=== PATIENT | female | born 1995 | race African-American/Black ===

== ENCOUNTER 2017-04-03 11:33 | Inpatient (IN) ==
[2017-04-03 12:47] LABS: Creatinine 24 Hr Urine Result 0.76 G/24HR (0.60-1.80)
[2017-04-03] MEDS ORDERED: ceFAZolin 2,000 MG in PREMIX 1 EACH IV ONE (13:18)
[2017-04-03] MEDS ORDERED: BUPIVACAINE SPINAL 0.75% 2 ML AMP SPINAL ONE (13:29)
[2017-04-03] MEDS ORDERED: MAGNESIUM SULF RIDER 100 ML IV ONE (13:30)
[2017-04-03 13:32] LABS: Basophils % 0.2 % (0.0-0.8); Eosinophils # 0.1 10*3/uL (0.0-0.87); Eosinophils % 0.8 % (0.00-10.9); Hematocrit 34.4 VOL% (35.7-47.0); Hemoglobin 10.8 GM/DL (12.0-16.0); Immature Granulocytes % 0.8 %; Immature Granulocytes Absolute 0.11 #; Lymphocytes % 22.4 % (21.3-54.2); Mean Corpuscular HGB Conc 31.4 GM/DL (32-36); Mean Corpuscular Hemoglobin 25 PG (27-34); Mean Corpuscular Volume 78.9 FL (87-102); Mean Platelet Volume 9.9 FL (9.6-12.0); Monocytes # 1.7 10*3/uL (0.11-0.8); Monocytes % 12.8 % (1.7-12.7); Neutrophils # 8.3 10*3/uL (1.4-7.4); Platelet Count 504 T/CUMM (130-400); Red Blood Count 4.36 MC/CUMM (3.8-5.5); Red Cell Distribution Width 19.7 % (9.3-17.3); White Blood Count 13.2 T/CUMM (4-12)
[2017-04-03] MEDS: LACTATED RINGERS 1,000 ML IV SCH ×2 (13:38→21:30)
[2017-04-03 13:41] LABS: INR 0.8; Partial Thromboplastin Time 26.6 SECS (0-40)
[2017-04-03] MEDS ORDERED: hydrALAZINE 20 MG/1 ML VIAL IV ONE (13:44)
[2017-04-03 13:58] LABS: Apearance,Urine Slightly Hazy (Clear); Bacteria,Urine Occasional /HPF (Few); Bilirubin,Urine Negative (Negative); Blood, Urine Negative (Negative); Glucose,Urine (UA) Negative (Negative); Ketones,Urine Negative (Negative); Mucus,Urine Few /LPF (Occasional); Nitrite,Urine Negative (Negative); Protein,Urine >=500 MG/DL; RBC,Urine <1 /HPF (0-4); Squamous Epithelial Cell,Urine Occasional /HPF (0-10); Urine Color Yellow (Yellow); Urine Specific Gravity 1.045 (1.001-1.035); Urine Urobilinogen < 2.0 EU/DL (0.2-1.0); WBC,Urine 3 /HPF (0-6)
[2017-04-03 13:58] LABS: Alanine Aminotransferase 10 U/L (13-56); Albumin 1.5 G/DL (3.4-5.0); Alkaline Phosphatase 172 U/L (45-117); Aspartate Amino Transferase 18 U/L (0-37); Bilirubin,Total < 0.39 MG/DL (0.2-1.0); Blood Urea Nitrogen 10 MG/DL (7-18); Calcium 7.7 MG/DL (8.5-10.1); Glucose 87 MG/DL (74-106); Osmolality,Calculated 280.1 MOS/KG (273-304); Potassium 3.9 MMOL/L (3.5-5.1); Sodium 142 MMOL/L (136-145); Total Protein 4.9 G/DL (6.4-8.3)
[2017-04-03] MEDS ORDERED: OXYTOCIN 10 UNIT/ML VIAL IM ONE (14:15)
[2017-04-03] MEDS ORDERED: OXYTOCIN/LR 30 UNIT/1,000 ML BAG IV ONE (14:15)
[2017-04-03] MEDS ORDERED: FAMOTIDINE 20 MG/2 ML VIAL IV ONE (14:25)
[2017-04-03] MEDS ORDERED: CITRIC ACID/SODIUM CITRATE 30 ML UDCUP PO ONE (14:25)
[2017-04-03] MEDS ORDERED: MIDAZOLAM 2 MG/2 ML VIAL ONE ×2 (14:26→14:46)
[2017-04-03 14:30] LABS: Cord Arterial Blood HCO3 26.6 MMOL/L
[2017-04-03 14:32] LABS: Cord Venous Blood HCO3 22.7 MMOL/L; Cord Venous Blood PCO2 45.5 MMHG; Cord Venous Blood PO2 15.4
[2017-04-03] MEDS ORDERED: MORPHINE 10 MG/10 ML VIAL ONE (14:47)
[2017-04-03] MEDS: MAGNESIUM SULF DRIP 40 GM/1,000 ML ML IV SCH (14:51)
[2017-04-03] MEDS: diphenhydrAMINE 50 MG/1 ML VIAL IV PRN ×2 (16:42→23:49)
[2017-04-03] MEDS: hydrALAZINE 20 MG/1 ML VIAL IV SCH ×2 (18:14→18:15)
[2017-04-03] MEDS: LABETALOL 200 MG TABLET PO SCH (20:33)
[2017-04-03] MEDS ORDERED: OXYTOCIN/LR 20 UNIT/1,000 ML BAG IV ONE (21:30)
[2017-04-03] MEDS ORDERED: ONDANSETRON 4 MG/2 ML VIAL IV PRN (21:30)
[2017-04-03] MEDS ORDERED: SIMETHICONE CHEW 80 MG TABLET PO PRN (21:30)
[2017-04-03] MEDS ORDERED: ACETAMINOPHEN 325 MG TABLET PO PRN (21:30)
[2017-04-03] MEDS ORDERED: RHO(D) IMMUNE GLOBULIN 300 MCG SYRINGE IM ONE (22:00)
[2017-04-04] MEDS: DOCUSATE SODIUM 100 MG CAPSULE PO SCH ×3 (00:52→20:49)
[2017-04-04] MEDS: LABETALOL 200 MG TABLET PO SCH ×3 (01:37→20:49)
[2017-04-04] MEDS ORDERED: MAGNESIUM SULF DRIP 40 GM/1,000 ML ML IV ONE (08:42)
[2017-04-04] MEDS: MULTIVITAMIN (PRENATAL) TABLET PO SCH (08:44)
[2017-04-04] MEDS: MAGNESIUM SULF DRIP 40 GM/1,000 ML ML IV SCH (08:45)
[2017-04-04] MEDS: FUROSEMIDE 40 MG/4 ML VIAL IV SCH ×2 (09:58→17:36)
[2017-04-04] MEDS: LACTATED RINGERS 1,000 ML IV SCH ×2 (15:06→15:16)
[2017-04-04 15:44] LABS: Basophils % 0.2 % (0.0-0.8); Eosinophils # 0.1 10*3/uL (0.0-0.87); Eosinophils % 0.7 % (0.00-10.9); Hematocrit 38.3 VOL% (35.7-47.0); Hemoglobin 12.2 GM/DL (12.0-16.0); Immature Granulocytes % 0.6 %; Lymphocytes % 11.2 % (21.3-54.2); Mean Corpuscular HGB Conc 31.9 GM/DL (32-36); Mean Corpuscular Hemoglobin 24 PG (27-34); Mean Corpuscular Volume 76.6 FL (87-102); Mean Platelet Volume 9.6 FL (9.6-12.0); Monocytes # 1.5 10*3/uL (0.11-0.8); Monocytes % 8.5 % (1.7-12.7); Neutrophils # 14.2 10*3/uL (1.4-7.4); Neutrophils % 78.8 % (38.7-73.9); Platelet Count 546 T/CUMM (130-400); Red Cell Distribution Width 20.1 % (9.3-17.3)
[2017-04-04] MEDS: MAGNESIUM HYDROXIDE SUSP 30 ML UDCUP PO PRN (20:49)
[2017-04-04] MEDS: IBUPROFEN 800 MG TABLET PO PRN (22:14)
[2017-04-05] MEDS: FUROSEMIDE 40 MG/4 ML VIAL IV SCH (02:24)
[2017-04-05] MEDS: MULTIVITAMIN (PRENATAL) TABLET PO SCH (09:02)
[2017-04-05] MEDS: LABETALOL 200 MG TABLET PO SCH ×2 (09:03→20:38)
[2017-04-05] MEDS: DOCUSATE SODIUM 100 MG CAPSULE PO SCH ×2 (09:03→20:38)
[2017-04-05] MEDS: IBUPROFEN 800 MG TABLET PO PRN (13:36)
[2017-04-05] MEDS: MAGNESIUM HYDROXIDE SUSP 30 ML UDCUP PO PRN (14:48)
[2017-04-06 07:11] VITALS: BP 160/98
[2017-04-06] MEDS: DOCUSATE SODIUM 100 MG CAPSULE PO SCH (09:24)
[2017-04-06] MEDS: LABETALOL 200 MG TABLET PO SCH (09:24)
[2017-04-06] MEDS: MULTIVITAMIN (PRENATAL) TABLET PO SCH (09:24)
[2017-04-06] MEDS ORDERED: DIPH/TET/ACEL PERT BOOSTER VACCINE 0.5 ML VIAL IM ONE (10:49)
== END 2017-04-06 15:00 | disposition home or self-care (01) | DRG 540 ==
LOC: N.LAB 11:33 → N.LD 11:36 → N.OB 04-04 20:19
PROVIDERS: ADMIT Obstetrics & Gynecology; ATTEND Obstetrics & Gynecology
PROC: LDCSECT (ICD-10-PCS; 2017-04-03 14:00)